=== PATIENT | female | born 1970 | race Caucasian/White ===

== ENCOUNTER 2020-03-09 10:07 | Emergency (ER) | payer BC, SELFPAY ==
[2020-03-09] VITALS (7 sets, daily range): BP systolic 104–118; BP diastolic 57–76; PULSE 64–77; RESP 11–18; TEMP 36.8; O2SAT 97–100; BMI 23.0
--- NOTE | 2020-03-09 | ECG_ITS ---
APPROVED REPORT Exam: Resting ECG HR:71 bpm ECG Measurements Heart Rate 71 AXES QRSd 70 QRS 79 QT 402 T 63 QTc 436 Conclusion NSR Late r wave progression Abnormal ECG Electronically signed by : Abhi Strickland, 03/10/2020 07:11:21
--- NOTE | 2020-03-09 10:31 | XR_ITS ---
PROCEDURE: XR CHEST 2V CLINICAL HISTORY: chest pain COMPARISON: No exams were available for comparison FINDINGS: The cardiomediastinal silhouette and pulmonary vascularity are within normal limits. The lungs are clear without infiltrates, suspicious nodules, or pleural effusions. No acute bony abnormalities. IMPRESSION: No acute findings. Dictated by: Jordan Duque MD 03/09/2020 12:33 Jordan Duque MD in [place] 03/09/2020 12:33
[2020-03-09 10:39] LABS: Basophils # 0.1 K/mm3 (0-0.2); Basophils % 1.1 % (0.1-2.0); Eosinophils # 0.3 K/mm3 (0.0-0.4); Eosinophils % 3.8 % (0.1-12.0); Hematocrit 44.3 % (37.0-47.0); Hemoglobin 15.1 g/dL (12.2-16.2); Lymphocytes # 2.1 K/mm3 (0.7-4.5); Lymphocytes % 32.7 % (10-50); Mean Corpuscular Hemoglobin 31.2 pg (27.0-31.2); Mean Corpuscular Volume 91.8 fl (81-99); Mean Platelet Volume 8.1 fl (7.4-10.4); Monocytes # 0.5 K/mm3 (0.1-1.0); Neutrophils # 3.6 K/mm3 (1.8-7.8); Neutrophils % 54.4 % (37.0-80.0); Platelet Count 237 K/mm3 (142-424); Red Blood Count 4.83 M/mm3 (4.20-5.40); Red Cell Distribution Width 13.1 % (11.5-17.5); White Blood Count 6.5 K/mm3 (4.8-10.8)
--- NOTE | 2020-03-09 10:41 | [facility].EDCP ---
ED Disposition Clinical Impression: Chest pain Qualifiers: Chest pain type: unspecified Qualified Code(s): R07.9 - Chest pain, unspecified Disposition: Home, Self-Care Condition on Discharge: Good Instructions: DI for Atypical Chest Pain Referrals: Hilaria Pearson [Primary Care Provider] - 3 days Newton Dunn MD [Staff Physician] - 3 days - Critical Care Critical Care Time: No Attestation: On , the high probability of a clinically significant, sudden or life threatening deterioration of the following system(s) required my full and direct attention, intervention and personal management. The time I documented below is in addition to time spent performing reported procedures but includes the following listed in this critical care notation. Medical Decision Making - Medical Records Medical records reviewed: Yes: I reviewed the patient's medical records. - Anmol Inquiry Pt receiving controlled substance: No Vital Signs: 03/09/20 10:08 03/09/20 10:38 03/09/20 11:08 Temperature 98.2 F Temperature Source Oral Pulse Rate [Left Radial] 74 77 75 Respiratory Rate 18 11 L 18 Blood Pressure [Right Arm] 118/65 118/65 110/61 Blood Pressure Mean [Right Arm] 82 82 77 Blood Pressure Source [Right Arm] Automatic Cuff Automatic Cuff Automatic Cuff Blood Pressure Position [Right Arm] Sitting Supine 02 Sat by Pulse Oximetry 97 99 98 Oxygen Delivery Method Room Air Room Air Room Air 03/09/20 11:30 03/09/20 12:00 03/09/20 12:30 Temperature Temperature Source Pulse Rate [Left Radial] 71 64 64 Respiratory Rate 16 14 14 Blood Pressure [Right Arm] 105/57 L 113/76 111/60 Blood Pressure Mean [Right Arm] 73 88 77 Blood Pressure Source [Right Arm] Automatic Cuff Automatic Cuff Automatic Cuff Blood Pressure Position [Right Arm] Supine 02 Sat by Pulse Oximetry 97 100 100 Oxygen Delivery Method Room Air Room Air Room Air - Lab Data Lab Results 03/09/20 10:22: WBC 6.5, RBC 4.83, Hgb 15.1, Hct 44.3, MCV 91.8, MCH 31.2, MCHC 34.0, RDW 13.1, Plt Count 237, MPV 8.1, Neut % (Auto) 54.4, Lymph % (Auto) 32.7, [place] % (Auto) 8.0, Eos % (Auto) 3.8, Baso % (Auto) 1.1, Neut # (Auto) 3.6, Lymph # (Auto) 2.1, [place] # (Auto) 0.5, Eos # (Auto) 0.3, Baso # (Auto) 0.1 03/09/20 10:22: Troponin I < 0.01 03/09/20 10:22: Sodium 136, Potassium 3.9, Chloride 104, Carbon Dioxide 26, Anion Gap 9.9, BUN 11, Creatinine 0.80, Estimated Creat Clear 79, Estimated GFR 76, Est GFR ( Amer) 92, Glucose 99, Calcium 9.3, Total Bilirubin 0.8, AST 28, ALT 11 L, Alkaline Phosphatase 87, Total Protein 7.6, Albumin 4.4, Globulin 3.2, Albumin/Globulin Ratio 1.4 03/09/20 10:22: Lipase 87 03/09/20 12:20: Troponin I < 0.01 Result diagrams: 03/09/20 10:22 03/09/20 10:22 Orders (Tests/Meds): ORDERS Category Date Time Status Troponin I Q3H Lab 03/09/20 16:45 Ordered Troponin I Q3H Lab 03/09/20 19:45 Ordered Troponin I Q3H Lab 03/09/20 22:45 Ordered Troponin I Q3H Lab 03/10/20 01:45 Ordered Troponin I Q3H Lab 03/10/20 04:45 Ordered Troponin I Q3H Lab 03/10/20 07:45 Ordered - Radiology Data #1 Image(s): Chest Image Reviewed: Yes I reviewed the patient's radiology results, Yes I reviewed the patient's radiology image Preliminary Findings: Normal/NAD - ECG Data Tracing #1 EKG at 1016 shows a normal sinus rhythm with a rate of 71. No acute ST segment elevation or depression. No hyperacute T waves. Normal intervals, including IL. EKG interpreted by me. Medical Decision Narrative: Patient low risk [place] and heart score. Chest x-ray with no signs of pneumonia, pneumothorax, widened mediastinum that would suggest dissection or florid pulmonary edema. Patient remains chest pain-free and with negative troponins with a 2-hour delta. Would certainly expect elevated troponin as symptoms have been intermittent over the last week if this were related to ACS. Recommended outpatient follow-up with cardiology within the nex
[2020-03-09 10:45] LABS: Chloride 104 mmol/L (98-107); Potassium 3.9 mmoL/L (3.5-5.1); Sodium 136 mmol/L (136-145)
[2020-03-09 10:47] LABS: Lipase 87 U/L (23-300)
[2020-03-09 10:48] LABS: Alanine Aminotransferase 11 U/L (12-78); Albumin Level 4.4 g/dl (3.5-5.0); Albumin/Globulin Ratio 1.4 (1.1-1.8); Alkaline Phosphatase 87 U/L (38-126); Anion Gap 9.9 mEq/L (5-15); Aspartate Amino Transferase 28 U/L (14-36); Bilirubin,Total 0.8 mg/dl (0.2-1.3); Blood Urea Nitrogen 11 mg/dl (7-17); Carbon Dioxide 26 mmol/L (22.0-30.0); Creatinine Clearance Estimated 79 mL/min (50-200); Estimated Glomerular Filt Rate 76 ml/min (>60); GFR (African American) 92 ML/MIN (>60); Globulin 3.2 g/dL (1.3-3.2); Total Protein,Serum 7.6 g/dl (6.3-8.2)
[2020-03-09 10:49] LABS: Calcium 9.3 mg/dl (8.4-10.2); Glucose 99 mg/dl (74-100)
[2020-03-09 11:00] LABS: Troponin I < 0.01 ng/ml (0.00-0.034)
[2020-03-09 13:06] LABS: Troponin I < 0.01 ng/ml (0.00-0.034)
== END 2020-03-09 13:32 | disposition home or self-care (01) ==
PROVIDERS: Emergency Provider Emergency Medicine; PCP Family Medicine
DX: R07.9 Chest pain, unspecified (principal); Z88.5 Allergy status to narcotic agent
CPT/HCPCS: 71046; 80053; 83690; 84484; 85025; 93005; 99283